=== PATIENT | male | born 1990 | race Caucasian/White ===

== ENCOUNTER 2024-06-14 20:31 | Emergency (ER) | payer OTHER ==
--- NOTE | 2024-06-14 21:20 | ED ---
Psych HPI - General Source: patient <Maryam Camarillo - Last Filed: 06/14/24 21:19> - General Limitations: no limitations <Weston Christopher - Last Filed: 07/09/24 06:28> - General Stated Complaint: mental health Time Seen by Provider: 06/14/24 21:19 - History of Present Illness Initial Comments: Quick [id number] male presenting with request for mental health evaluation. States he is homeless, anxious, and tired. Denies suicidal or homicidal ideation. Does not offer any further complaints at this time. (Carl qianaMaryam) - Related Data Allergies Allergy/AdvReac Type Severity Reaction Status Date / Time shellfish derived [Shellfish] Allergy Itching Verified 06/26/24 17:13 Review of Systems ROS Other: All systems not noted in ROS Statement are negative. <Maryam Camarillo - Last Filed: 06/14/24 21:19> ROS Other: All systems not noted in ROS Statement are negative. Respiratory: Denies: cough, dyspnea Cardiovascular: Denies: chest pain, syncope Gastrointestinal: Denies: abdominal pain, vomiting Neurological: Denies: headache Psychiatric: Reports: anxiety, depression. Denies: auditory hallucinations, visual hallucinations, homicidal thoughts, suicidal thoughts <Weston Christopher - Last Filed: 07/09/24 06:28> ROS Statement: Those systems with pertinent positive or pertinent negative responses have been documented in the HPI. General Exam <Maryam Camarillo - Last Filed: 06/14/24 21:19> General appearance: alert, in no apparent distress Head exam: Present: atraumatic, normocephalic Eye exam: Present: normal appearance. Absent: scleral icterus, conjunctival injection Neck exam: Present: normal inspection Respiratory exam: Present: normal lung sounds bilaterally. Absent: respiratory distress, wheezes, rales, rhonchi, stridor, accessory muscle use Cardiovascular Exam: Present: regular rate, normal rhythm, normal heart sounds. Absent: systolic murmur, diastolic murmur, rubs, gallop GI/Abdominal exam: Present: soft. Absent: tenderness, guarding, rebound Extremities exam: Present: normal inspection, normal capillary refill Back exam: Present: normal inspection. Absent: CVA tenderness (R), CVA tenderness (L) Neurological exam: Present: alert Psychiatric exam: Present: depressed. Absent: agitated, anxious, flat affect, manic, homicidal ideation, suicidal ideation Skin exam: Present: warm, dry, intact, normal color. Absent: rash <Weston Christopher - Last Filed: 07/09/24 06:28> - General Exam Comments Initial Comments: Visual Physical Exam General: Well-appearing, nontoxic, no acute distress. Head: Normocephalic, atraumatic Eyes: PERRLA, EOMI ENT: Airway patent Chest: Nonlabored breathing Skin: No visual rash, normal skin tone Neuro: Alert and oriented 3 Musculoskeletal: No gross abnormalities (Maryam Camarillo) Course Vital Signs 06/14/24 06/15/24 22:00 02:50 Temperature 98.1 F 98.1 F Pulse Rate 90 100 Respiratory 18 18 Rate Blood Pressure 135/91 140/97 O2 Sat by Pulse 97 98 Oximetry Medical Decision Making <Maryam Camarillo - Last Filed: 06/14/24 21:19> <Weston Christopher - Last Filed: 07/09/24 06:28> - Medical Decision Making I completed the quick note portion of this chart signed Maryam Camarillo PA-C (Maryam Camarillo) Was pt. sent in by a medical professional or institution (, PA, DEATH CLAIM EXAMINER, urgent care, hospital, or usp...) When possible be specific @ -[No] Did you speak to anyone other than the patient for history (EMS, parent, family, police, friend...)? What history was obtained from this source @ -[No] Did you review nursing and triage notes (agree or disagree)? Why? @ -[I reviewed and agree with nursing and triage notes] Were old charts reviewed (outside hosp., previous admission, EMS record, old EKG, old radiological studies, urgent care reports/EKG's, usp records)? Report findings @ -[No old charts were reviewed] Differential Diagnosis (chest pain, altered mental status, abdominal pain women, abdominal pain men, vaginal bleeding, weakness, fever, dyspnea, syncope, headache, dizziness, GI bleed, back pain, seizure, CVA, palpatations, mental health, musculoskeletal)? @ -[Differential Mental Health Depression, anxiety, bipolar, psychosis, schizophrenia, borderline personality, situational depression, adjustment disorder, behavioral disorder, brain tumor, malingering, substance abuse, encephalopathy, medication reaction, dementia, hypothyroidism, degenerative neurologic disorder, lupus.... This is not meant to be all-inclusive list EKG interpreted by me (3pts min.). @ -[As above] X-rays interpreted by me (1pt min.). @ -[None done] CT interpreted by me (1pt min.). @ -[None done] U/S interpreted by me (1pt. min.). @ -[None done] What testing was considered but not performed or refused? (CT, X-rays, U/S, labs)? Why? @ -[None] What meds were considered but not given or refused? Why? @ -[None] Did you discuss the management of the patient with other professionals (professionals i.e. , PA, DEATH CLAIM EXAMINER, lab, RT, psych nurse, social problems specialist, urologist, teacher, radiological defense officer, high risk case manager)? Give summary @ -[Case discussed with EPS personnel Was smoking cessation discussed for >3mins.? @ -[No] Was critical care preformed (if so, how long)? @ -[No] Were there social determinants of health that impacted care today? How? (Homelessness, low income, unemployed, alcoholism, drug addiction, transportation, low edu. Level, literacy, decrease access to med. care, retirement, rehab)? @ -[No] Was there de-escalation of care discussed even if they declined (Discuss DNR or withdrawal of care, Hospice)? DNR status @ -[No] What co-morbidities impacted this encounter? (DM, HTN, Smoking, COPD, CAD, Cancer, CVA, ARF, Chemo, Hep., AIDS, mental health diagnosis, sleep apnea, morbid obesity)? @ -[None] Was patient admitted / discharged? Hospital course, mention meds given and route, prescriptions, significant lab abnormalities, going to OR and other pertinent info. @ -[Patient is a 33-year-old man presenting with request to have mental health evaluation. At my interview patient not suicidal or homicidal. He is evaluated by EPS and at this point stable to continue as outpatient Undiagnosed new problem with uncertain prognosis? @ -[No] Drug Therapy requiring intensive monitoring for toxicity (Heparin, Nitro, Insulin, Cardizem)? @ -[No] Were any procedures done? @ -[No] Diagnosis/symptom? @ -[Mood disorder Insomnia Acute, or Chronic, or Acute on Chronic? @ -[Acute Uncomplicated (without systemic symptoms) or Complicated (systemic symptoms)? @ -[Uncomplicated Side effects of treatment? @ -[No] Exacerbation, Progression, or Severe Exacerbation? @ -[No] Poses a threat to life or bodily function? How? (Chest pain, USA, [place], pneumonia, PE, COPD, DKA, ARF, appy, cholecystitis, CVA, Diverticulitis, Homicidal, Suicidal, threat to staff... and all critical care pts) @ -[No] All treatments are based on ideal body weight as in ED triage (Weston Christopehr) Disposition <Maryam Camarillo - Last Filed: 06/14/24 21:19> Is patient prescribed a controlled substance at d/c from ED?: No <Weston Christopher - Last Filed: 07/09/24 06:28> Clinical Impression: Acute anxiety, Mood disorder Disposition: HOME SELF-CARE Condition: Good Instructions (If sedation given, give patient instructions): Mood Disorders (ED) Referrals: None,Stated [Primary Care Provider] - 1-2 days
[2024-06-14 23:55] VITALS: RESP 18; TEMP 98.1
[2024-06-15 02:57] VITALS: BP 140/97; PULSE 100
== END 2024-06-15 03:00 | disposition home or self-care (01) ==
LOC: EC 20:31
DX: F41.9 Anxiety disorder, unspecified (principal); F39 Unspecified mood [affective] disorder; G47.00 Insomnia, unspecified; Z91.013 Allergy to seafood; Z59.00 Homelessness unspecified
CPT/HCPCS: 82075; 99285

== ENCOUNTER 2024-06-26 17:01 | Emergency (ER) | payer OTHER ==
--- NOTE | 2024-06-26 17:29 | ED ---
General Adult HPI - General Chief complaint: Anxiety Stated complaint: anxiety Time Seen by Provider: 06/26/24 17:03 Source: patient Mode of arrival: EMS Limitations: no limitations - History of Present Illness Initial comments: Dictation was produced using [employer] dictation software. please excuse any grammatical, word or spelling errors. Chief Complaint: 33-year-old male with anxiety History of Present Illness: Patient 33-year-old male states he is homeless. States that he is anxious. Denies any suicidal homicidal ideation. No other complaints. No visual auditory hallucinations. The ROS documented in this emergency department record has been reviewed and confirmed by me. Those systems with pertinent positive or negative responses have been documented in the HPI. All other systems are other negative and/or noncontributory. - Related Data Allergies Allergy/AdvReac Type Severity Reaction Status Date / Time shellfish derived [Shellfish] Allergy Itching Verified 06/26/24 17:13 Review of Systems ROS Statement: Those systems with pertinent positive or pertinent negative responses have been documented in the HPI. ROS Other: All systems not noted in ROS Statement are negative. Past Medical History Past Medical History: No Reported History History of Any Multi-Drug Resistant Organisms: None Reported Past Surgical History: No Surgical Hx Reported Past Psychological History: Anxiety, Depression Smoking Status: Current every day smoker Past Alcohol Use History: Rare Past Drug Use History: Marijuana General Exam - General Exam Comments Initial Comments: General: Well-appearing, nontoxic, no acute distress. Head: Normocephalic, atraumatic Eyes: PERRLA, EOMI ENT: Airway patent Chest: Nonlabored breathing Skin: No visual rash, normal skin tone Neuro: Alert and oriented 3 Musculoskeletal: No gross abnormalities Psych: Unremarkable Limitations: no limitations Course Vital Signs 06/26/24 17:07 Temperature 98.1 F Pulse Rate 99 Respiratory 18 Rate Blood Pressure 154/98 O2 Sat by Pulse 99 Oximetry Medical Decision Making - Medical Decision Making Was pt. sent in by a medical professional or institution ([facility], ECD, urgent care, hospital, or detention...) When possible be specific @ -No Did you speak to anyone other than the patient for history (EMS, parent, family, police, friend...)? What history was obtained from this source @ -No Did you review nursing and triage notes (agree or disagree)? Why? @ -I reviewed and agree with nursing and triage notes Were old charts reviewed (outside hosp., previous admission, EMS record, old EKG, old radiological studies, urgent care reports/EKG's, detention records)? Report findings @ -No old charts were reviewed Differential Diagnosis (chest pain, altered mental status, abdominal pain women, abdominal pain men, vaginal bleeding, musculoskeletal, weakness, fever, dyspnea, syncope, headache, dizziness, GI bleed, back pain, seizure, CVA, palpatations, mental health)? @ -Differential Mental Health: Depression, anxiety, bipolar, psychosis, schizophrenia, borderline personality, situational depression, adjustment disorder, behavioral disorder, brain tumor, malingering, substance abuse, encephalopathy, medication reaction, dementia, hypothyroidism, degenerative neurologic disorder, lupus.... This is not meant to be all-inclusive list EKG interpreted by me (3pts min.). @ -None done X-rays interpreted by me (1pt min.). @ -None done CT interpreted by me (1pt min.). @ -None done U/S interpreted by me (1pt. min.). @ -None done What testing was considered but not performed or refused? (CT, X-rays, U/S, labs)? Why? @ -None What meds were considered but not given or refused? Why? @ -None Was smoking cessation discussed for >3mins.? @ -No Were there social determinants of health that impacted care today? How? (Homelessness, low income, unemployed, alcoholism, drug addiction, transportation, low edu. Level, literacy, decrease access to med. care, halfway, rehab)? @ -No Was there de-escalation of care discussed even if they declined (Discuss DNR or withdrawal of care, Hospice)? DNR status @ -No What co-morbidities impacted this encounter? (DM, HTN, Smoking, COPD, CAD, Cancer, CVA, ARF, Chemo, Hep., AIDS, mental health diagnosis, sleep apnea, morbid obesity)? @ -None Was patient admitted / discharged? Hospital course, mention meds given and route, prescriptions, significant lab abnormalities, going to OR and other pertinent info. @ -33-year-old homeless male presents with anxiety. Vital signs stable. Patient well-appearing on exam. Physical examination is unremarkable. Patient has no high risk features. Given 1 dose of Xanax discharge. Did you discuss the management of the patient with other professionals (professionals i.e. , PA, ECD, lab, RT, psych nurse, social and political studies professor, state archivist, teacher, hazard mitigation officer, casework specialist)? Give summary @ -No Was critical care preformed (if so, how long)? @ -No Undiagnosed new problem with uncertain prognosis? @ -No Drug Therapy requiring intensive monitoring for toxicity (Heparin, Nitro, Insulin, Cardizem)? @ -No Were any procedures done? @ -No Diagnosis/symptom? Acute, or Chronic, or Acute on Chronic? Uncomplicated (without systemic symptoms) or Complicated (systemic symptoms)? @ -Anxiety Side effects of treatment? @ -No Exacerbation, Progression, or Severe Exacerbation? @ -No Poses a threat to life or bodily function? How? (Chest pain, USA, [place], pneumonia, PE, COPD, DKA, ARF, appy, cholecystitis, CVA, Diverticulitis, Homicidal, Suicidal, threat to staff... and all critical care pts) @ -No Disposition Clinical Impression: Panic attack Disposition: HOME SELF-CARE Condition: Good Instructions (If sedation given, give patient instructions): Generalized Anxiety Disorder (ED) Is patient prescribed a controlled substance at d/c from ED?: No Referrals: None,Stated [Primary Care Provider] - 1-2 days Time of Disposition: 17:29
[2024-06-26] MEDS: ALPRAZolam 0.5 MG TAB PO STA (17:45)
[2024-06-26 18:00] VITALS: BP 149/93; PULSE 89; RESP 16; TEMP 98.9
== END 2024-06-26 18:36 | disposition home or self-care (01) ==
LOC: EC 17:01
DX: F41.0 Panic disorder [episodic paroxysmal anxiety] (principal); F17.200 Nicotine dependence, unspecified, uncomplicated; Z59.00 Homelessness unspecified
CPT/HCPCS: 99284